=== PATIENT | female | born 1935 | race Asian ===

== ENCOUNTER → 2018-06-22 | Outpatient (CLI) | payer MEDICARE, OTHER ==
[~2018-06-22] MED LIST: ACET325T9 PO; ASPI-482 PO; CALC600T4 PO; CHOL2000 PO; CIPR500T PO; CRAN200C2 PO; DIPH25CA58 PO; GREE250C2 PO; GUAI100G2 PO; HYDR-2765 PO; IOHEXOL 180 MG/ML 10 ML VIAL. ONE; OMEG500C PO; PANT20TA3 PO; VITAMIN B; [UNRECOGNIZED DRUG - REMARK]; methylPREDNISolone ACETATE 40 MG/ML VIAL. ONE; methylPREDNISolone ACETATE 80 MG/ML VIAL. ONE
--- NOTE | 2018-06-22 15:23 | PAIN ---
DATE OF SERVICE: 06/22/2018 INITIAL CONSULTATION FOR PAIN CLINIC CHIEF COMPLAINT: Neck and left upper extremity pain. HISTORY OF PRESENT ILLNESS: This is an 82-year-old female who presents with history of pain based in the neck and left upper extremity in the posterior deltoid, posterior triceps and into the forearm posteriorly with some tingling, numbness in the thumb and first finger at times. She reports this has been going on for about 2 months, not a result of any specific injury or action she is aware of, but it just came up with time. Now, it is a sharp pain, described as radiating to the left upper extremity, intermittent in intensity, changes during the day, worse with activity, repetitive motions, weightbearing, raising over her head with her left hand radiating down the left arm as noted. The patient reports it causes headaches occasionally, most of the time, it is just in the arm and neck. The patient reports it awakens her from sleep at least twice a night, does not affect her bowel or bladder control, but does affect her ability to walk. She feels her balance is off to some extent when her arm is hurting on the left side. The patient has not had any further treatment at this time, no physical therapies, no chiropractic treatment. She is doing some stretching exercises on her own, but nothing formally. The patient did have an MRI scan of cervical spine showing interval postoperative changes of diskectomy and fusion at C3-C4 with multilevel disease with C6-C7 showing a mild flattening of the anterior thecal sac with mild diffuse disk bulge, mild right and moderate to severe left neural foraminal stenosis at that level. The patient rates her disability from 0-10, 10 being the worst, is a 9 with recreation, 5 with family and home responsibilities, social activity, occupation, 3 with sexual behavior and self-care and 6 with life support activities. The patient reports no loss of motor function, with significant fatigability of the left upper extremity compared to the right with daily functions, even just driving a car, putting on her jacket, reaching back to put her arm in a sleeve. PAST MEDICAL HISTORY: Significant for the arthritis, gastroesophageal reflux, kidney infections. PREVIOUS SURGERY: Includes anterior cervical diskectomy in 2013, appendectomy, D and C, bilateral cataract extractions and left eye laser surgery. CURRENT MEDICATIONS: Include fish oil, calcium replacement, pantoprazole, daily baby aspirin, Tylenol, hydrocodone, cranberry extract, green tea and vitamin B12. ALLERGIES: THE PATIENT IS ALLERGIC TO SULFA AND PENICILLIN. SOCIAL HISTORY: The patient does not drink alcohol, does not smoke, does not use any illegal, illicit or recreational drugs. The patient is , lives with her spouse locally in [place], [place] and is currently retired. FAMILY HISTORY: Significant for cancer in the patient's mother. She is unsure of the type. REVIEW OF SYSTEMS: The patient's review of systems is positive for those items mentioned in history of present illness. All systems reviewed and otherwise negative. It is complete, full and well documented on the patient's chart. PHYSICAL EXAMINATION: VITAL SIGNS: The patient's blood pressure is 136/79, pulse is 69, respirations 18, temperature 98.4 degrees Fahrenheit. Height 5 feet 1 inch, weighs 138 pounds. GENERAL: The patient is awake, alert, oriented, appropriate, very pleasant demeanor. The patient is accompanied by her . HEENT: Head shows normocephalic, atraumatic. Extraocular movements are intact and symmetrical. Oral cavity: Mucous membranes are moist and pink. Dentition is intact. NECK: Shows anterior throat supple without palpable lymphadenopathy noted. Swallow reflex symmetrical. CHEST: Shows normal on inspection. Breath sounds clear to auscultation bilaterally. HEART: Shows S1, S2 clear. No murmurs auscultated. ABDOMEN: Soft, nontender, nondistended. No palpable organomegaly is noted. No rebound or guarding demonstrated. BACK: Shows spine grossly in the midline, normal-appearing cervical lordotic curvature, thoracic kyphotic curvature and lumbar lordotic curvature. Cervical paraspinous muscle shows symmetrical on inspection, with palpation shows some moderate tenderness in the inferior aspect of the cervical paraspinous musculature bilaterally, slightly more on the left than the right, but without any atrophy, hypertrophy without asymmetry, no trigger points or radiation of pain. The patient's neck shows good rotation motion both laterally greater than 45 degrees right and left as well as full extension, full forward flexion without significant pain or difficulty reported. EXTREMITIES: Upper extremities show deep tendon reflexes at 2+ in the biceps, triceps tendons. Motor exam is approximately 4 on a scale of 5 with left loss prevention manager, 5/5 with bicep and tricep flexion bilaterally and right loss prevention manager is 5/5. Peripheral pulses are 2+ radial distribution. No peripheral edema is noted bilaterally. The patient's shoulder shrug is strong and intact without loss of strength or resistance, with some mild pain reported on the left side in the posterior shoulder. This is true with abduction of the shoulder to 90 degrees with resistance. Again, no loss of strength, but significant pain in the left shoulder and tricep on the left side with resistance. SKIN: Shows warm and dry, good turgor. No edema. No sores, rashes or bruising. IMPRESSION: 1. This is an 82-year-old female who presents with history of pain of approximately 2 months in the base of the neck, left upper extremity in a radicular fashion. 2. MRI scan of cervical spine as noted. 3. History of arthritis. PLAN: Options were discussed with the patient including conservative medical management, physical therapy, interventional techniques. She would like to pursue interventional techniques. We discussed a cervical epidural steroid injection using description as well as anatomical models to describe the procedure. Risks were then discussed including, but not limited to bleeding, infection, possibility of epidural hematoma, subsequent neurological compromise, dural puncture, headaches, spinal cord and/or nerve damage, side effects of steroid medication and poor results regarding pain control. The patient understands and wished to proceed. She is to return to clinic in approximately 2 weeks for followup. She was counseled on return appointment, activity level and side effects to be aware of. DIAGNOSES: Cervical radiculopathy with cervical degenerative disk disease and post-cervical laminectomy syndrome. PROCEDURE: Cervical epidural steroid injection, translaminar approach C6-C7 level using C-arm fluoroscopic guidance under sterile prep and drape using local anesthetic. MEDICATION INJECTED: A total of 120 mg Depo-Medrol plus 5 mL of preservative-free normal saline and 2 mL of Isovue for contrast. CONDITION AT DISCHARGE: Stable. The patient tolerated the procedure well, had no complications. NEELA MAK MD DR: ALFRED/jeff JOB#: [id number] / [id number] CRISTINA Salguero MD
== END | disposition home or self-care (01) ==
LOC: PNCL 10:52
PROVIDERS: ATTEND Anesthesiology
DX: M50.123 Cervical disc disorder at C6-C7 level with radiculopathy (principal); M96.1 Postlaminectomy syndrome, not elsewhere classified; M19.90 Unspecified osteoarthritis, unspecified site; K21.9 Gastro-esophageal reflux disease without esophagitis; Z90.49 Acquired absence of other specified parts of digestive tract; Z98.42 Cataract extraction status, left eye; Z98.41 Cataract extraction status, right eye; Z96.1 Presence of intraocular lens; Z98.890 Other specified postprocedural states; Z88.0 Allergy status to penicillin; Z88.2 Allergy status to sulfonamides; Z79.82 Long term (current) use of aspirin; Z79.899 Other long term (current) drug therapy
CPT/HCPCS: 62321; J1030; J1040; Q9965

== ENCOUNTER → 2018-07-06 | Outpatient (CLI) | payer MEDICARE, OTHER ==
--- NOTE | 2018-07-06 12:13 | PAIN ---
DATE OF SERVICE: 07/06/2018 PROGRESS NOTE FOR PAIN CLINIC DIAGNOSES: Cervical radiculopathy with cervical degenerative disk disease and post-cervical laminectomy syndrome. HISTORY OF PRESENT ILLNESS: The patient is an 82-year-old female who returns for followup status post cervical epidural steroid injection x 1. The patient reports about 50% improvement with the left upper extremity pain in the base of the neck and the patient complains of headaches with the pain returned about 3 days ago and otherwise was doing very well, increased her activity around the house, doing household activities with greater activity with her left arm and sleeping better at night. The patient reports it still awakens her up about twice a night over the past 3-4 days but prior to that was doing quite well. The patient reports the pain is an 8 on a scale of 10 at its worst, average and is 3 at its least and is an 8 today. The patient reports it is aching, shooting, radiating, becoming more noticeable over the past few days. The patient reports no new motor or sensory deficits and no new bowel or bladder incontinence or other complaints. PHYSICAL EXAMINATION: VITAL SIGNS: The patient's blood pressure 152/80, pulse 71, respirations 16 and temperature 97.7 degrees Fahrenheit. Weight is 135 pounds. GENERAL: The patient is awake, alert, oriented, appropriate and very pleasant demeanor. HEENT: Head shows normocephalic and atraumatic. Extraocular muscles are intact and symmetrical. Oral cavity, mucous membranes are moist and pink. Dentition is intact. NECK: Shows anterior throat supple without palpable lymphadenopathy noted. Swallow reflex symmetrical. CHEST: Shows normal with inspection. Breath sounds clear to auscultation bilaterally. HEART: Shows S1 and S2 clear. No murmurs auscultated. ABDOMEN: Soft, nontender and nondistended. No palpable organomegaly is noted. No rebound or guarding demonstrated. BACK: Shows spine grossly in the midline. Normal-appearing thoracic kyphosis, cervical lordotic curvature. Cervical paraspinous muscle shows symmetrical on inspection. On palpation shows some moderate tenderness but only diffusely with palpation bilaterally. The patient has good rotational motion of the cervical spine, both laterally as well as extension and flexion without significant increase in pain. EXTREMITIES: Upper extremities show deep tendon reflexes 2+ in the biceps and triceps tendons. Motor exam is approximately 4 on a scale 5 in the left with indoor landscaper/gardener strength and 5/5 on the right. Bicep and tricep flexion 5/5 bilaterally. Peripheral pulses are 2+ radial distribution. No peripheral edema is noted. Options were discussed with the patient and the patient's who accompanies her to visit today. We will proceed with a second cervical epidural steroid injection today with fluoroscopic guidance. Risks were again discussed including, but not limited to bleeding, infection, possibility of epidural hematoma and subsequent neurological compromise, dural puncture, headaches, spinal cord and/or nerve damage, side effects of steroid medication and poor results regarding pain control. The patient understands and wished to proceed. The patient will return to the clinic in approximately 2 weeks for followup, was counseled as to return appointment, activity level and side effects to be aware of. DIAGNOSES: Cervical radiculopathy with cervical degenerative disk disease and cervical post-laminectomy syndrome. PROCEDURE: Cervical epidural steroid injection, translaminar approach, C6-C7 level using C-arm fluoroscopic guidance under sterile prep and drape using local anesthetic. MEDICATION INJECTED: A total of 120 mg Depo-Medrol plus 5 mL of preservative-free normal saline and 2 mL of Isovue for contrast. CONDITION AT DISCHARGE: Stable. The patient tolerated the procedure well and had no complications. NEELA MAK MD DR: ALFRED/nts JOB#: [id number] / [id number]
== END | disposition home or self-care (01) ==
LOC: PNCL 10:03
PROVIDERS: ATTEND Anesthesiology
DX: M50.123 Cervical disc disorder at C6-C7 level with radiculopathy (principal); M96.1 Postlaminectomy syndrome, not elsewhere classified; Z88.0 Allergy status to penicillin; Z88.2 Allergy status to sulfonamides
CPT/HCPCS: 62321; J1030; J1040; Q9965

== ENCOUNTER → 2018-07-20 | Outpatient (CLI) | payer MEDICARE, OTHER ==
[~2018-07-20] MED LIST changes: -methylPREDNISolone ACETATE 40 MG/ML VIAL. ONE; -methylPREDNISolone ACETATE 80 MG/ML VIAL. ONE
--- NOTE | 2018-07-20 10:35 | PAIN ---
DATE OF SERVICE: 07/20/2018 DIAGNOSES: 1. Cervical radiculopathy with cervical degenerative disk disease and cervical post-laminectomy syndrome. 2. Post-dural puncture headache. HISTORY OF PRESENT ILLNESS: The patient is an 82-year-old female who returns for followup status post cervical epidural steroid injection on 07/06/2018. The patient did well initially, but there was some question as to whether she had some spinal fluid at the time of the procedure. We discussed this with she and her at that time, but she had no headache and did very well for that day, but later that evening and into the next day she had a significant headache, which initially was positional in nature, but then became nonpositional and has been nonpositional now for over a week. The patient reports significant pain on top of the head, back of the head, over the eyes with some minor photophobia without visual disturbances with acuity. The patient reports it is worse with lying down, sitting up, standing, walking to the point where she considered going to the Emergency Room, but waited to see how our visit went today. The patient reports otherwise doing much better with the pain in her upper extremities, her left arm doing much better by about a 70% improvement. The patient reports her pain is a 10 on a scale of 10 at its worst, 8 on average, 6 at its least and this is due to the headache, not with the left upper extremity. The patient reports her arm is aching, but the headache is severe. The patient reports no new motor or sensory deficits or other complaints. PHYSICAL EXAMINATION: VITAL SIGNS: The patient's blood pressure 146/69, pulse is 70, respirations 18, temperature 98.1 degrees Fahrenheit, height is 5 feet 1 inch, weight is 131 pounds. GENERAL: The patient is awake, alert, oriented, appropriate, very pleasant in demeanor. HEENT: Head shows normocephalic, atraumatic. Extraocular movements are intact and symmetrical. Oral cavity: Mucous membranes moist and pink. Dentition is intact. NECK: Shows anterior throat supple without palpable lymphadenopathy noted. Swallow reflex is symmetrical. The patient has full rotational motion of cervical spine. No rigidity. No difficulty with rotation both laterally greater than 45 degrees as well as full extension, full forward flexion without limitation and without increase in headache as well. Eyes show pupils equal, round, reactive to light and accommodation and are symmetrical with extraocular movements as noted. EXTREMITIES: The patient's upper extremities show deep tendon reflexes 2+ in the biceps and triceps tendons. Motor exam is approximately 4 on a scale of 5 left lining mechanic and 5/5 on the right. Peripheral pulses are 2+ radial. No peripheral edema is noted. Options were discussed with the patient. The patient's old chart was reviewed as her current medication regimen updated. Current review of systems updated today as well. We will proceed with a cervical epidural blood patch for the posterior puncture headache. Risks were discussed including but not limited to bleeding, infection, possibility of epidural hematoma and subsequent neurologic compromise, dural puncture, worsening headaches, spinal cord and/or nerve damage, exposure to fluoroscopy and poor results regarding pain control. The patient understands and wished to proceed. The patient will return to clinic in approximately 1 week for followup. She was counseled as to the return appointment, activity level and side effects to be aware of. DIAGNOSES: Cervical radiculopathy with cervical degenerative disk disease and post-cervical laminectomy syndrome and post-dural puncture headache. PROCEDURE: Cervical epidural blood patch under sterile prep and drape using local anesthetic and C-arm fluoroscopic guidance under sterile prep and drape. MEDICATION INJECTED: A 10 mL of the patient's own blood sterilely transferred from the right AC vein. CONDITION AT DISCHARGE: Stable. The patient tolerated the procedure well, had no complications. NEELA MAK MD DR: ALFRED/jeff JOB#: [id number] / [id number]
== END | disposition home or self-care (01) ==
LOC: PNCL 08:58
PROVIDERS: ATTEND Anesthesiology
DX: G97.1 Other reaction to spinal and lumbar puncture (principal); M96.1 Postlaminectomy syndrome, not elsewhere classified; M50.10 Cervical disc disorder with radiculopathy, unspecified cervical region; Z88.0 Allergy status to penicillin; Z88.2 Allergy status to sulfonamides
CPT/HCPCS: 62273; 77003; Q9965